=== PATIENT | male | born 1950 | race Caucasian/White ===

== ENCOUNTER 2022-11-22 10:59 | Observation (INO) | payer BC, OTHER ==
--- OUTSIDE RECORDS SUMMARY | 2022-11-22 11:01 | XMS REPORT | Clinical Summary ---
:1950 Author Organization [facility] MD [facility] Address [address] [place] [address] Care Team Providers Name Role Phone Jamarcus Staley MD Unavailable Unavailable Jamarcus Staley MD Unavailable Unavailable Tadeo Doshi MD Unavailable Anibal Toro MD Unavailable Miles Angel MD Unavailable Frances Pacheco Unavailable Amilcar Brady PhD Unavailable Unavailable Arlene Shaw PhD Unavailable [phone] Bruce Allen MD Unavailable Jhonny Wray MD Primary Care Provider Jesse Garduno MD Unavailable Allergies No known active allergies Medications Medication Sig Dispensed Refills Start Date End Date Status hydrochlorothiazide TK 1 T PO QD. 6 04/22/2016 Active (HYDRODIURIL) 12.5 mg tablet atorvastatin (LIPITOR) 80 Take 80 mg by 0 Active mg tablet mouth. aspirin (ASPIR-81) 81 mg Take by 0 Active EC tablet mouth. losartan (COZAAR) 100 mg 0 04/19/2016 Active tablet omeprazole (PriLOSEC) 40 Take 1 180 capsule 2 03/01/2018 Active MG capsuleIndications: capsule (40 Laryngopharyngeal reflux mg) by mouth 2 (two) times a day before meals. Additional Information Patient not taking. Reason: Not effective, Reported on 04/06/2020 magnesium oxide (MAOX) 400 mg tablet Take 400 mg by mouth daily. 0 Active montelukast (SINGULAIR) 10 mg tablet Take 10 mg by mouth daily. 0 Active ezetimibe (ZETIA) 10 mg tablet Take 10 mg by mouth daily. 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 Surgical History Surgery Date Site/Laterality Comments KNEE SURGERY DIRECT OPERATIVE LARYNGOSCOPY W/BIOPSY TRANSORAL LASER MICROSURGERY Elle epiglottic fold PARTIAL PHARYNGECTOMY FL OTOLARYNGOLOGIC EXAM UNDER 04/25/2018 Mouth/N/A Pr ocedure: OTOLARYNGOLOGIC GENERAL ANESTHESIA EXAM UNDER AN ESTHESIA; Surgeon: Jhonny hess MD; Location: MAIN O R; Service: HN - HEAD & NECK SURGERY FL LARYNGOSCOPY DIRECT 04/25/2018 Mouth/N/A Procedure : DIRECT OPERATIVE OPERATIVE W/BIOPSY LARYNGOSCOPY WITH BIOPSY; Surgeon: Jhonny hess MD; Location: MAIN O R; Service: HN - HEAD & NECK SURGERY FL LARYNGOSCOPY W/WO 05/23/2018 Mouth/Right Procedure: DIAGNOSTIC DIRECT TRACHEOSCOPY W/MICRO/TELESCOPE L ARYNGOSCOPY USING OPERATING MICROSCOPE; Need flexible CO2 laser; Surgeon: Jhonny Wray MD; Lo cation: MAIN OR; Service: HN - HEAD & NECK SURGERY Medical History Medical History Date Comments Hypertension Carotid artery stenosis Cancer Social History Tobacco Use Types Packs/Day Years Used Date Smoking Tobacco: Former Cigarettes 2 25 Smokeless Tobacco: Never Alcohol Use Standard Drinks/Week Comments Yes 5 (1 standard drink = 0.6 oz pure alcoho l) Sex Assigned at Date Recorded Not on file Obstetrics History Last Filed Vital Signs Not on file Plan of Treatment Health Maintenance Due Date Last Done Comments COVID-19 Vaccination (4 - Booster 09/14/2021 07/20/2021, , for Pfizer series) 10/28/2020 Results Not on fileafter 11/22/2021 Insurance Payer Benefit Plan / Subscriber ID Effective Phone Address T jeffrey [employer] Dates ACCESS TPA BRUNI [id number] 2017-Pres [phone] po box Ac cess [employer] ent [id number] [place] [address] MEDICARE MEDICARE PART [id number] 2013-Pre [phone] NOVITAS Medicare A AND B sent [id number] [facility] [place], [place] [address] Care Teams Obstetrics Scrub Nurse Relationship Specialty Start Date End Date Jamarcus Staley, PCP - External 12/09/13 MD Referring Jamarcus Staley, PCP - External Follow 12/09/13 Up Tadeo Dubon PCP - External Follow 12/17/13 MD Jay Aviles [address] [place] [address] Jhonny Wray MD PCP - General Head and Neck Surgery 04/18/[address] [place] [address] [id number] Anibal Toro MD Physician Radiology 12/08/[address] [place] [address] [id number] Miles Angel MD Physician Head and Neck Surgery 12/08/[address] [place] [address] [id number] Frances Pacheco PA Physician Remote Sensing Specialist Head and Neck Surgery 12/08/15 [address] [facility] [address] [place], [place] [phone] Amilcar Brady, PhD Physician Speech Pathology 12/08/15 Arlene Shaw Speech Language Speech Pathology 12/08/15 Wesley, PhD Pathologist [address] [place] [address] [phone] Bruce Allen MD Physician 12/08/[address] [place] [address] [phone] Jesse Garduno, Physician Cardiology 04/22/[address] [place] [address] [phone]
--- OUTSIDE RECORDS SUMMARY | 2022-11-22 11:02 | XMS REPORT | Continuity of Care Document ---
:1950 Author Organization [facility] t Address [address] [place] [address] Care Team Providers Name Role Phone BIA VAZ Primary Care Physician Unavailable Nurse, Adc Pob Immunization Attending Clinician Unavailable Gianni Simmons DO Attending Clinician GIANNI SIMMONS Attending Clinician Unavailable CALOS YOUNG Attending Clinician Unavailable ANT ANDRADE Attending Clinician Unavailable BIA VAZ Attending Clinician Unavailable Payers Payer Name Policy Type Policy Number Effective Date Expiration Date [facility] [id number] 2017 HEALTHCARE GENERIC 00:00:00 MEDICARE PART A AND [id number] 2013 B 00:00:00 Problems Condition Condition Condition Status Onset Resolution Last Treating Co mments Source Name Details Category Date Date Treatment Clinician Date Paralysis Paralysis Disease Active 2017-10 Uni vers of vocal of vocal 2-04 ity of cords and cords and 00:00: Andi s larynx, larynx, 00 unilateral unilateral [facility] Dysplasia Dysplasia Disease Active Overview: Univers of vocal of vocal 8- Formattin ity of cord cord 00:00: g of this [place] 00 note might be Gabriella hernandez n from the Cancer original. Center Added automatic ally from request for surgery [id number] Hypertensi Hypertensi Disease Recurre Univers on on nce 04-25 ity of 00:00: [place] 00 MD [facility] Carotid Carotid Disease Recurre Univer s artery artery nce 7-26 ity of stenosis stenosis 00:00: [place] 00 MD [facility] Leukoplaki Leukoplaki Disease Active Overview : Univers a of vocal a of vocal 7-18 Formattin ity of cord cord 00:00: g of this 00 note might be Andmoira hernandez n from the Cancer original. Center Added automatic ally from request for surgery [id number] Carcinoid Carcinoid Disease Active Uni vers tumor tumor 8-03 ity of 00:00: [place] 00 MD [facility] Allergies, Adverse Reactions, Alerts Allergy Allergy Status Severity Reaction(s) Onset Inactive Treating Comm ents Source Name Type Date Date Clinician NO KNOWN Drug Active Univers ALLERGIE Class ity of S [facility] Social History Social Habit Start Date Stop Date Quantity Comments Source History of tobacco Current smoker Un iversity of use [place] MD Leandro anaya [facility] Alcohol intake 2020-04-06 2020-04-06 Current drinker Unive rsity of 00:00:00 00:00:00 of alcohol [place] MD Leandro anaya (finding) [facility] Cigarettes smoked 2018-04-25 2018-04-25 Univers ity of current (pack per 00:00:00 00:00:00 [facility] Yulisa ) - Reported Cancer Ce nter Cigarette 2018-04-25 2018-04-25 University of pack-years 00:00:00 00:00:00 [place] MD Leandro anaya [facility] Tobacco use and 2017-07-27 2017-07-27 Never used Universit y of exposure 00:00:00 00:00:00 [facility] Sex Ass[birth year] At [birth year] Universit y of 00:00:00 00:00:00 [place] MD Leandro anaya [facility] Smoking Status Start Date Stop Date Source Ex-smoker 2018-04-25 00:00:00 2018-04-25 00:00:00 Universi ty of [facility] Current every day 2017-07-27 00:00:00 [facility] Medications Ordered Filled Start Stop Current Ordering Indication Dosage Frequency Signature Comments Components Source Medication Medication Date Date Medication? Clinician (SIG) Name Name atorvastati Yes 80mg Take 80 mg Univers n (LIPITOR) 04-06 by mouth. ity of 80 mg 15:32: [place] tablet 48 MD Gabriella diallo [facility] aspirin 2019-0 Yes Take by Univers (ASPIR-81) 7-07 mouth. ity of 81 mg EC 15:32: [place] tablet 48 MD Gabriella diallo [facility] magnesium 0 Yes 400mg Take 400 Uni vers oxide 7-07 mg by ity of (MAOX) 400 15:32: mouth [place] mg tablet 48 daily. MD Gabriella diallo [facility] montelukast Yes 10mg Take 10 mg Univers (SINGULAIR) 7-07 by mouth ity of 10 mg 15:32: daily. [place] tablet 48 MD Gabriella diallo [facility] ezetimibe Yes 10mg Take 10 mg Un nikki (ZETIA) 10 7-07 by mouth ity o f mg tablet 15:32: daily. [place] 48 MD Gabriella diallo [facility] omeprazole Yes Laryngophar 40mg Take 1 Univers (PriLOSEC) 6- yngeal capsule ity of 40 MG 00:00: reflux (40 mg) [place] capsule 00 mouth 2 (two) Gabriella times a n day before Cancer meals. Lamy aspirin 81 2016-10 Yes Take by Univ ers mg EC 0-27 mouth. ity of tablet 08:40: [place] 19 [facility] losartan 2016-10 Yes TK 1 T PO Univ ers 100 mg 0-16 QD ity of tablet 00:00: [place] 00 [facility] hydroCHLORO 2016-10 Yes TK 1 T PO U nivers thiazide 0-16 QD. ity of 12.5 mg 00:00: [place] tablet 00 [facility] atorvastati 2016-10 Yes Sandra s n 80 mg 0-16 ity of tablet 00:00: [place] 00 [facility] pantoprazol 2016-10 Yes TK 1 T PO U nivers e 40 mg EC 0-02 D ON EMPTY ity of tablet 00:00: STOMACH 30 [place] 00 MIN B LAURA [facility] montelukast Yes TK 1 T PO U nivers 10 mg 9-13 QAM ity of tablet 00:00: [place] 00 [facility] hydrochloro Yes TK 1 T PO U nivers thiazide 7-23 QD. ity of (HYDRODIURI 00:00: [place] L) 12.5 mg 00 MD galina Quiroz [facility] losartan Yes Univers (COZAAR) 7-20 ity of 100 mg 00:00: [place] tablet 00 MD [facility] Immunizations Ordered Filled Immunization Date Status Comments Sourc e Immunization Name Name SARS-COV-2 COVID-19 2021-07-20 Completed Unive rsity of PFIZER VACCINE 00:00:00 [facility] SARS-COV-2 COVID-19 2020-11-25 Completed Unive rsity of PFIZER VACCINE 00:00:00 [facility] SARS-COV-2 COVID-19 2020-10-28 Completed Unive rsity of PFIZER VACCINE 00:00:00 [facility] Vital Signs Vital Name Observation Time Observation Value Comments Source WEIGHT 2020-04-06 00:00:00 82.6 kg Procedures Procedure Date / Time Performed Performing Clinician Sour e SARS-COV-2 COVID-19 2021-07-20 13:07:06 Doctor Unassigned, No Un iversity of [place] VACCINE,0.3ML,IM Name Medical Branch (PFIZER) Plan of Care Planned Activity Planned Date Details Comments Source Future Scheduled 2022-07-29 COVID-19 Vaccination Uni versity of [place] Test 05:58:40 (4 - Booster for MD Son Cancer Pfizer series) [code Center = COVID-19 Vaccination (4 - Booster for Pfizer series)] Encounters Start End Encounter Admission Attending Care Care Encounter Source Date/Time Date/Time Type Type Clinicians Facility Department ID 2021-07-20 2021-07-20 Imm/Inj Nurse, Adc Pob Immunization [facility] [id number] Univers 08:05:54 08:15:54 Visit Gianni Simmons [id number] steffen [facility] [id number] Andi Linkessio [id number] De dical nal [address] [place] [address] 2021-07-20 2021-07-20 Outpatient R SID [facility] [id number] Univers 08:10:00 08:10:00 GIANNI bourne [facility] 2020-11-25 2020-11-25 Outpatient R HANNAH [facility] [id number] Univers 13:20:00 13:20:00 CALOS [id number] steffen [facility] 2020-11-25 2020-11-25 Outpatient R HANNAH, [facility] [id number] Univers 13:20:00 13:20:00 CALOS [facility] 2020-11-18 2020-11-18 Outpatient Lorena YOUNG [facility] [id number] Univers 13:20:00 13:20:00 CALOS [id number] [facility] 2020-10-28 2020-10-28 Outpatient Lorena YOUNG [facility] [id number] Univers 12:00:00 12:00:00 CALOS [id number] [facility] 2020-10-28 2020-10-28 [facility] [id number] Univers 12:00:00 12:00:00 CALOS [facility] 2020-10-05 2020-10-05 Outpatient MELLO ANDRADE, MDA MDA [id number] 00:00:00 00:00:00 ANT diallo 2020-10-05 2020-10-05 Outpatient MELLO ANDRADE, MDA MDA [id number] 00:00:00 00:00:00 ANT diallo 2020-10-05 2020-10-05 Outpatient EL GOEPFERT, MDA MDA [id number] 00:00:00 00:00:00 BIA diallo 2020-04-06 2020-04-06 Outpatient EL GOEPFERT, MDA MDA [id number] 08:30:56 10:37:54 BIA diallo 2020-04-06 2020-04-06 Outpatient EL GOEPFERT, MDA MDA [id number] 08:21:23 08:28:56 BIA diallo 2020-04-06 2020-04-06 Outpatient EL GOEPFERT, MDA MDA [id number] 07:07:20 07:07:20 BIA diallo Results This patient has no known results.
[2022-11-22 11:36] LABS: Absolute Lymphocytes (CBC) 1.6 K/uL (0.7-4.9); Hematocrit 45.8 % (39.6-49.0); Lymphocytes % 20.3 % (15.3-44.8); MCV 93.8 fL (80-100); MPV 7.8 fL (7.6-11.3); RBC Red Blood Cell Count 4.89 M/uL (4.33-5.43)
[2022-11-22] MEDS ORDERED: ONDANSETRON 4 MG/2 ML VIAL ONE (11:48)
[2022-11-22] MEDS ORDERED: MORPHINE 4 MG/ML SYR ONE (11:48)
[2022-11-22] MEDS ORDERED: ASPIRIN 81 MG CHEWABLE TABLET ONE (11:48)
[2022-11-22] MEDS ORDERED: NA CHLORIDE 0.9% 1,000 ML ONE (11:49)
[2022-11-22] MEDS ORDERED: FAMOTIDINE 20 MG/2 ML VIAL IV ONE (11:49)
[2022-11-22 11:54] LABS: Potassium 3.5 mmol/L (3.5-5.1); Troponin High Sensitivity 6.9 pg/mL (<58.9)
--- NOTE | 2022-11-22 12:30 | EDPHYS ---
Physician Documentation [facility] Name: Jm Bearden Age: 72 yrs Sex: Male : 1950 Arrival Date: 11/22/2022 Time: 11:03 Bed 4 Private MD: Tadeo Doshi T ED Physician Fredis Cline HPI: 11/22 12:22 This 72 yrs old Male presents to ER via Ambulatory with complaints of Chest paula Pressure. 12:22 The patient or guardian reports chest pain that is located primarily in the anterior paula chest wall, bilaterally. Onset: last night. The pain does not radiate. Associated signs and symptoms: Pertinent positives: dizziness, lightheadedness, shortness of breath. The chest pain is described as a heaviness, a pressure. Modifying factors: The symptoms are alleviated by nothing. the symptoms are aggravated by nothing. Severity of pain: At its worst the pain was mild in the emergency department the pain is unchanged. The patient has not experienced similar symptoms in the past. Historical: - Allergies: 11:09 No Known Allergies; [facility] - PMHx: 11:09 COPD; throat cancer; Hypertensive disorder; [facility] - PSHx: 11:09 throat ca removal x2; [facility] 11:16 prostate sx; [facility] - Immunization history:: Adult Immunizations up to date. - Social history:: Smoking status: Patient reports the use of cigarette tobacco products, smokes one pack cigarettes per day. - Family history:: not pertinent. ROS: 12:22 Constitutional: Negative for fever, chills, and weight loss, Eyes: Negative for injury, paula pain, redness, and discharge, ENT: Negative for injury, pain, and discharge, Neck: Negative for injury, pain, and swelling, Respiratory: Negative for shortness of breath, cough, wheezing, and pleuritic chest pain, Abdomen/GI: Negative for abdominal pain, nausea, vomiting, diarrhea, and constipation, Back: Negative for injury and pain, : Negative for injury, bleeding, discharge, and swelling, MS/Extremity: Negative for injury and deformity, Skin: Negative for injury, rash, and discoloration, Neuro: Negative for headache, weakness, numbness, tingling, and seizure, Psych: Negative for depression, anxiety, suicide ideation, homicidal ideation, and hallucinations, Allergy/Immunology: Negative for hives, rash, and allergies, Endocrine: Negative for neck swelling, polydipsia, polyuria, polyphagia, and marked weight changes, Hematologic/Lymphatic: Negative for swollen nodes, abnormal bleeding, and unusual bruising. 12:22 Cardiovascular: Positive for chest pain. Exam: 12:22 Constitutional: This is a well developed, well nourished patient who is awake, alert, paula and in no acute distress. Head/Face: Normocephalic, atraumatic. Eyes: Pupils equal round and reactive to light, extra-ocular motions intact. Lids and lashes normal. Conjunctiva and sclera are non-icteric and not injected. Cornea within normal limits. Periorbital areas with no swelling, redness, or edema. ENT: Nares patent. No nasal discharge, no septal abnormalities noted. Tympanic membranes are normal and external auditory canals are clear. Oropharynx with no redness, swelling, or masses, exudates, or evidence of obstruction, uvula midline. Mucous membranes moist. Neck: Trachea midline, no thyromegaly or masses palpated, and no cervical lymphadenopathy. Supple, full range of motion without nuchal rigidity, or vertebral point tenderness. No Meningismus. Chest/axilla: Normal chest wall appearance and motion. Nontender with no deformity. No lesions are appreciated. Cardiovascular: Regular rate and rhythm with a normal S1 and S2. No gallops, murmurs, or rubs. Normal PMI, no JVD. No pulse deficits. Respiratory: Lungs have equal breath sounds bilaterally, clear to auscultation and percussion. No rales, rhonchi or wheezes noted. No increased work of breathing, no retractions or nasal flaring. Abdomen/GI: Soft, non-tender, with normal bowel sounds. No distension or tympany. No guarding or rebound. No evidence of tenderness throughout. Back: No spinal tenderness. No costovertebral tenderness. Full range of motion. Male : Normal genitalia with no discharge or lesions. Skin: Warm, dry with normal turgor. Normal color with no rashes, no lesions, and no evidence of cellulitis. MS/ Extremity: Pulses equal, no cyanosis. Neurovascular intact. Full, normal range of motion. Neuro: Awake and alert, GCS 15, oriented to person, place, time, and situation. Cranial nerves II-XII grossly intact. Motor strength 5/5 in all extremities. Sensory grossly intact. Cerebellar exam normal. Normal gait. Psych: Awake, alert, with orientation to person, place and time. Behavior, mood, and affect are within normal limits. 12:22 ECG was reviewed by the Attending Physician. Vital Signs: 11:07 BP 152 / 87; Pulse 81; Resp 16; Temp 98.6; Pulse Ox 97% ; Weight 82.55 kg; Height 5 ft. 5 11 in. (180.34 cm); Pain 5/10; 12:22 BP 142 / 78; Pulse 73; Resp 19 S; Pulse Ox 97% on R/A; kc6 13:09 BP 154 / 80; Pulse 79; Resp 24 S; Pulse Ox 96% on R/A; kc6 13:52 BP 140 / 67; Pulse 74; Resp 16; Pulse Ox 97% ; jl7 14:00 BP 144 / 77; Pulse 72; Resp 18 S; Pulse Ox 98% on R/A; kc6 14:30 BP 144 / 83; Pulse 72; Resp 12 S; Pulse Ox 98% on R/A; kc6 11:07 Body Mass Index 25.38 (82.55 kg, 180.34 cm) [facility] MDM: 11:16 Patient medically screened. paula 12:26 Differential diagnosis: abnormal EKG, acute myocardial infarction, acute pericarditis, paula anxiety, coronary artery disease congestive heart failure Cholelithiasis costochondritis, hiatal hernia, myocarditis, pancreatitis, peptic ulcer disease, pleurisy, pulmonary embolus, stable angina, thoracic aortic disection, unstable angina. HEART Score: History: Slightly Suspicious (0), ECG: Non specific repolarization disturbance / LBTB / PM (1), Age: > or = 65 years (2), Risk Factors: > or = 3 Risk factors for atherosclerotic disease (2), [Hypercholesterolemia] [Hypertension] [+ Family HX] Troponin: < or = 1 x Normal Limit (0). The patient was given aspirin in the Emergency Department. JUAN DANIEL Risk Score: 1 - patient's age is greater or equal to 65 years, 1 - Three or more CAD risk factors, TOTAL SCORE = 2. Data reviewed: vital signs, nurses notes, lab test result(s), EKG, radiologic studies, CT scan, plain films. Consideration of Admission/Observation Patient was admitted/placed on observation. Escalation of care including admission/observation considered. Management of patient was discussed with the following: Long Distance Operator: DR CRAIG. Care significantly affected by the following chronic conditions: Hypertension, Chronic Obstructive Pulmonary Disease, Cancer. 11/22 11:11 Order name: Basic Metabolic Panel [facility] 11/22 11:11 Order name: CBC with Diff [facility] 11/22 11:11 Order name: Troponin HS [facility] 11/22 11:17 Order name: Lipase [facility] 11/22 11:17 Order name: SARS RAPID [facility] 11/22 11:41 Order name: Ptt, Activated [facility] 11/22 11:44 Order name: CBC with Automated Diff; Complete Time: 12:31 [facility] 11/22 11:54 Order name: Basic Metabolic Panel; Complete Time: 12:31 [facility] 11/22 11:54 Order name: Troponin High Sensitivity; Complete Time: 12:31 [facility] 11/22 11:54 Order name: Lipase; Complete Time: 12:31 [facility] 11/22 12:36 Order name: SARS-COV-2 Antigen Rapid; Complete Time: 12:45 [facility] 11/22 13:47 Order name: Phosphorus [facility] 11/22 13:47 Order name: T4 Free [facility] 11/22 13:47 Order name: Magnesium [facility] 11/22 11:11 Order name: XRAY Chest (1 view) [facility] 11/22 11:11 Order name: EKG; Complete Time: 11:11 [facility] 11/22 11:17 Order name: US Extremity Venous W Compression Dwayne [facility] 11/22 11:17 Order name: CT Chest For PE Angio [facility] 11/22 13:15 Order name: CT [facility] 11/22 13:15 Order name: US [facility] 11/22 13:16 Order name: RAD [facility] 11/22 13:47 Order name: Thyroid Stimulating Hormone [facility] 11/22 11:11 Order name: Cardiac monitoring; Complete Time: : [facility] 11/22 11:11 Order name: EKG - Nurse/Tech; Complete Time: 11:11 [facility] 11/22 11:11 Order name: IV Saline Lock; Complete Time: 11:16 [facility] 11/22 11:11 Order name: Labs collected and sent; Complete Time: 11:16 [facility] 11/22 11:11 Order name: O2 Per Protocol; Complete Time: : [facility] 02/22 11:11 Order name: O2 Sat Monitoring; Complete Time: : 5 EC:22 Rate is 80 beats/min. Rhythm is regular. QRS Merrill is Normal. CO interval is normal. QRS paula interval is normal. QT interval is normal. No Q waves. T waves are Normal. No ST changes noted. Clinical impression: No evidence of ischemia. Interpreted by me. Reviewed by me. Administered Medications: 11:18 CANCELLED (Duplicate Order): Aspirin Chewable Tablet 162 mg PO once paula 11:57 Drug: NS 0.9% 1000 ml Route: IV; Rate: 125 ml/hr; Site: right antecubital; kc6 15:07 Follow up: Response: No adverse reaction; IV Status: Completed infusion kc6 11:57 Not Given (Patient Refused): Pepcid (famotidine) 20 mg IVP once; dilute with 10 mL 0.9% kc6 NaCl; give over 2 minutes 11:57 Not Given (Patient Refused): morphine 4 mg IVP once over 4 mins kc6 11:57 Not Given (Patient Refused): Zofran (Ondansetron) 4 mg IVP once; over 2 minutes kc6 11:57 Drug: Aspirin Chewable Tablet 324 mg Route: PO; kc6 15:07 Follow up: Response: No adverse reaction kc6 12:46 Not Given (Physician Discretion): Heparin (DVT/PE- Bolus per protocol) - HEParin 80 kc6 units/kg IVP once; Max 8,000 units 12:46 Not Given (Physician Discretion): Heparin (DVT/PE Drip) 18 units/kg/hr - (HEParin 78593 kc6 units, D5W 500 ml) IV at per protocol Per protocol; Max initial rate 1800 units/hr Disposition Summary: 11/22/22 12:29 Hospitalization Ordered Hospitalization Status: Observation paula Provider: Junior Beard cha Location: Telemetry/MedSurg (observation) paula Condition: Stable paula Problem: new paula Symptoms: have improved paula Bed/Room Type: Standard paula Room Assignment: paula Diagnosis - Chest pain, unspecified paula - Essential (primary) hypertension paula Forms: - Medication Reconciliation Form paula - SBAR form paula Signatures: Dispatcher [employer] Fredis Glynn MD MD cha Smirch, Shelby, RN RN Julee Meza RN RN 5 Luz Marina Valdez RN RN kc6 Corrections: (The following items were deleted from the chart) 11:18 11:17 Aspirin Chewable Tablet 162 mg PO once ordered. [facility] 12:49 12:27 Labs - recollect needed ordered. kc6
--- NOTE | 2022-11-22 12:30 | ER ---
Nurse's Notes [facility] Name: Jm Bearden Age: 72 yrs Sex: Male : 1950 Arrival Date: 11/22/2022 Time: 11:03 Bed 4 Private MD: Tadeo Doshi T Diagnosis: Chest pain, unspecified;Essential (primary) hypertension Presentation: 11/22 11:07 Chief complaint: Patient states: last night I woke up just feeling sick and my leg jh5 started spasms and I was having chest pressure and SOB so i took an aspirin and then i was sent here this morning. Coronavirus screen: Vaccine status: Patient reports receiving the 2nd dose of the covid vaccine. Client denies travel out of the [place] in the last 14 days. Ebola Screen: Patient negative for fever greater than or equal to 101.5 degrees Fahrenheit, and additional compatible Ebola Virus Disease symptoms Patient denies exposure to infectious person. Patient denies travel to an Ebola-affected area in the 21 days before illness onset. Initial Sepsis Screen: Does the patient meet any 2 criteria? No. Patient's initial sepsis screen is negative. Does the patient have a suspected source of infection? No. Patient's initial sepsis screen is negative. Risk Assessment: Do you want to hurt yourself or someone else? Patient reports no desire to harm self or others. 11:07 Method Of Arrival: Ambulatory [facility] 11:07 Acuity: ROJAS 3 jh5 Triage Assessment: 11:09 General: Appears in no apparent distress. uncomfortable, slender, Behavior is calm, jh5 cooperative, appropriate for age. Pain: Complains of pain in chest. Cardiovascular: Reports chest pain, fatigue, shortness of breath. Historical: - Allergies: 11:09 No Known Allergies; jh5 - PMHx: 11:09 COPD; throat cancer; Hypertensive disorder; [facility] - PSHx: 11:09 throat ca removal x2; [facility] 11:16 prostate sx; [facility] - Immunization history:: Adult Immunizations up to date. - Social history:: Smoking status: Patient reports the use of cigarette tobacco products, smokes one pack cigarettes per day. - Family history:: not pertinent. Screenin:05 [facility] ED Fall Risk Assessment (Adult) History of falling in the last 3 months, kc6 including since admission No falls in past 3 months (0 pts) Confusion or Disorientation No (0 pts) Intoxicated or Sedated No (0 pts) Impaired Gait No (0 pts) Mobility Assist Device Used No (0 pt) Altered Elimination No (0 pt) Score/Fall Risk Level 0 - 2 = Low Risk Oriented to surroundings, Maintained a safe environment, Educated pt \T\ family on fall prevention, incl call for assistance when getting out of bed, Assessed \T\ reinforced patient's understanding of fall precautions, Hourly rounding (assess needs \T\ fall precautionary measures) done. Abuse screen: Denies threats or abuse. Denies injuries from another. Nutritional screening: No deficits noted. Tuberculosis screening: No symptoms or risk factors identified. Assessment: 12:05 General: Appears in no apparent distress. comfortable, Behavior is calm, cooperative, kc6 appropriate for age. Pain: Denies pain. Pain does not radiate. Pain began suddenly. Neuro: Ortega Agitation-Sedation Scale (RASS): 0 - Alert and Calm Level of Consciousness is awake, alert, obeys commands, Oriented to person, place, time, situation, Appropriate for age. Cardiovascular: Capillary refill < 3 seconds. Respiratory: Airway is patent Trachea midline Respiratory effort is even, unlabored, Respiratory pattern is regular, symmetrical. GI: No signs and/or symptoms were reported involving the gastrointestinal system. : No signs and/or symptoms were reported regarding the genitourinary system. EENT: No signs and/or symptoms were reported regarding the EENT system. Derm: No signs and/or symptoms reported regarding the dermatologic system. Skin is intact, Skin is pink, warm \T\ dry. Musculoskeletal: No signs and/or symptoms reported regarding the musculoskeletal system. Circulation, motion, and sensation intact. Capillary refill < 3 seconds, Range of motion: intact in all extremities. 12:46 Reassessment: ALICIA Mixon spoke with Dr. Cline. per LAICIA Mixon hold heparin drip unless kc6 troponin trends up. 13:05 Reassessment: Patient appears in no apparent distress at this time. No changes from kc6 previously documented assessment. Patient and/or family updated on plan of care and expected duration. Pain level reassessed. Patient is alert, oriented x 3, equal unlabored respirations, skin warm/dry/pink. Patient denies pain at this time. 14:05 Reassessment: Patient appears in no apparent distress at this time. No changes from 6 previously documented assessment. Patient and/or family updated on plan of care and expected duration. Pain level reassessed. Patient is alert, oriented x 3, equal unlabored respirations, skin warm/dry/pink. Patient denies pain at this time. 15:05 Reassessment: Patient appears in no apparent distress at this time. No changes from 6 previously documented assessment. Patient and/or family updated on plan of care and expected duration. Pain level reassessed. Patient is alert, oriented x 3, equal unlabored respirations, skin warm/dry/pink. Patient denies pain at this time. Vital Signs: 11:07 BP 152 / 87; Pulse 81; Resp 16; Temp 98.6; Pulse Ox 97% ; Weight 82.55 kg; Height 5 ft. jh5 11 in. (180.34 cm); Pain 5/10; 12:22 BP 142 / 78; Pulse 73; Resp 19 S; Pulse Ox 97% on R/A; kc6 13:09 BP 154 / 80; Pulse 79; Resp 24 S; Pulse Ox 96% on R/A; kc6 13:52 BP 140 / 67; Pulse 74; Resp 16; Pulse Ox 97% ; jl7 14:00 BP 144 / 77; Pulse 72; Resp 18 S; Pulse Ox 98% on R/A; kc6 14:30 BP 144 / 83; Pulse 72; Resp 12 S; Pulse Ox 98% on R/A; kc6 11:07 Body Mass Index 25.38 (82.55 kg, 180.34 cm) [facility] ED Course: 11:03 Patient arrived in ED. am2 11:03 Tadeo Doshi MD is Private Physician. am2 11:05 Spenser Sanchez PA is PHCP. [facility] 11:05 Fredis Cline MD is Attending Physician. [facility] 11:08 Triage completed. 5 11:09 Arm band placed on right wrist. [facility] 11:16 Basic Metabolic Panel Sent. [facility] 11:16 CBC with Diff Sent. [facility] 11:[address] [facility] 11:16 Inserted saline lock: 20 gauge in right antecubital area, using aseptic technique. [facility] 11:37 Luz Marina Valdez RN is Primary Nurse. kc6 11:57 Ptt, Activated Sent. kc6 11:57 SARS RAPID Sent. kc6 12:06 Patient has correct armband on for positive identification. Placed in gown. Bed in low kc6 position. Call light in reach. Side rails up X2. Client placed on continuous cardiac and pulse oximetry monitoring. NIBP monitoring applied. compression molding machine tender on. 12:06 Patient maintains SpO2 saturation greater than 95% on room air. kc6 12:29 Junior Beard is Hospitalizing Provider. [facility] 15:06 No provider procedures requiring assistance completed. IV discontinued, intact, kc6 bleeding controlled, No redness/swelling at site. Pressure dressing applied. Administered Medications: 11:18 CANCELLED (Duplicate Order): Aspirin Chewable Tablet 162 mg PO once [facility] 11:57 Drug: NS 0.9% 1000 ml Route: IV; Rate: 125 ml/hr; Site: right antecubital; kc6 15:07 Follow up: Response: No adverse reaction; IV Status: Completed infusion kc6 11:57 Not Given (Patient Refused): Pepcid (famotidine) 20 mg IVP once; dilute with 10 mL 0.9% kc6 NaCl; give over 2 minutes 11:57 Not Given (Patient Refused): morphine 4 mg IVP once over 4 mins kc6 11:57 Not Given (Patient Refused): Zofran (Ondansetron) 4 mg IVP once; over 2 minutes kc6 11:57 Drug: Aspirin Chewable Tablet 324 mg Route: PO; kc6 15:07 Follow up: Response: No adverse reaction kc6 12:46 Not Given (Physician Discretion): Heparin (DVT/PE- Bolus per protocol) - HEParin 80 kc6 units/kg IVP once; Max 8,000 units 12:46 Not Given (Physician Discretion): Heparin (DVT/PE Drip) 18 units/kg/hr - (HEParin 71023 kc6 units, D5W 500 ml) IV at per protocol Per protocol; Max initial rate 1800 units/hr Outcome: 12:29 Decision to Hospitalize by Provider. paula 15:06 AMA AMA form signed kc6 15:06 Condition: stable 15:06 Instructed on the need for admit. 15:09 Patient left the ED. [facility] Signatures: Fredis Cline MD MD cha Mickail, Joel, PA PA jmm Leal, Jahala, RN RN jl7 Nannette Morgan am2 Julee eMza, RN RN jh5 Luz Marina Valdez, RN RN kc6
[2022-11-22 12:36] LABS: SARS-CoV-2 Antigen Rapid Res Negative (Negative)
[2022-11-22] MEDS ORDERED: TRAMADOL HCL 50 MG TAB PO PRN (13:07)
[2022-11-22] MEDS ORDERED: ACETAMINOPHEN 325 MG TABLET PO PRN (13:07)
[2022-11-22] MEDS ORDERED: ONDANSETRON 4 MG/2 ML VIAL IV PRN (13:12)
[2022-11-22] MEDS ORDERED: HYDRALAZINE HCL 20 MG/ML VIAL IV PRN (13:13)
--- NOTE | 2022-11-22 13:14 | RAD REPORT ---
EXAM DESCRIPTION: CT - Chest For Pe Angio - 11/22/2022 12:44 pm CLINICAL HISTORY: Chest pain. Shortness of breath COMPARISON: Chest radiograph of the same day. TECHNIQUE: Dynamically enhanced axial 3 mm thick images of the chest were obtained during administra tion of 95 mL Isovue 370 IV contrast. Coronal and oblique reconstruction images were generated and re viewed. Exam utilizes a protocol for optimal evaluation of pulmonary arterial tree. All CT scans are performed using dose optimization technique as appropriate and may include automated exposure control or mA/KV adjustment according to patient size. FINDINGS: Pulmonary arteries are normal. No emboli or other suspicious finding. No acute or signific ant aorta findings. No mass or infiltrate in the lung parenchyma. Mild paraseptal emphysematous changes near the apices w ith mild biapical scarring. No pleural thickening or pleural effusion. No pneumothorax. Moderate athe rosclerotic calcifications along the thoracic aorta. No abnormal mediastinal or hilar masses or lymphadenopathy seen. No chest wall mass or abnormal axill iary lymphadenopathy. IMPRESSION: No evidence acute pulmonary emboli. No other acute pulmonary process. Mild paraseptal emphysematous changes.
--- NOTE | 2022-11-22 13:15 | RAD REPORT ---
EXAM DESCRIPTION: US - Extrem Venous W Compress Dwayne - 11/22/2022 12:41 pm CLINICAL HISTORY: Pain COMPARISON: None. TECHNIQUE: Real-time sonographic evaluation of the bilateral lower extremity deep venous systems was performed. FINDINGS: Normal compressibility, flow augmentation, phasic flow and spontaneous flow is identified in both the left and right lower extremity deep venous systems. No intraluminal filling defects seen. IMPRESSION: No evidence of DVT in either lower extremity.
--- NOTE | 2022-11-22 13:15 | RAD REPORT ---
EXAM DESCRIPTION: Jamirt Single View11/22/2022 12:57 pm CLINICAL HISTORY: CHEST PAIN COMPARISON: Chest Pa And Lat (2 Views) dated 04/07/2021; Chest Pa And Lat (2 Views) dated 12/06/2017; CH EST PA AND LAT 2 VIEW dated 04/06/2015 TECHNIQUE: Portable AP view of the chest. FINDINGS: The lungs are clear. No pneumothorax or effusion. The cardiomediastinal contours are unrem arkable. IMPRESSION: No acute cardiopulmonary process.
--- NOTE | 2022-11-22 13:18 | P.HP ---
Certification for Inpatient Patient admitted to: Observation With expected LOS: <2 Midnights Patient will require the following post-hospital care: None Practitioner: I am a practitioner with admitting privileges, knowledge of patient current condition, hospital course, and medical plan of care. Services: Services provided to patient in accordance with Admission requirements found in Title 42 Section 412.3 of the Code of Federal Regulations Patient History Date of Service: 11/22/22 Reason for admission: Chest pain History of Present Illness: Patient is a 72-year-old male with a past medical history significant for COPD, throat cancer, hypertension, prostate cancer who presents with complaint of chest pain located in the substernal chest area onset last night. Patient rated pain as 5/10 in severity and described pain as pressure in quality. Patient reported associated signs and symptoms of dizziness. Patient denies any other signs and symptoms. Symptoms are aggravated or relieved by nothing. Patient followed up with his iron caster today and was instructed to come to the ER. Patient decided to present to the ER as directed. - Past Medical/Surgical History -: HTN -: COPD -: Nicotine dependence Past Surgical History: Reviewed- Non-Contributory - Family History Family History: Reviewed- Non-Contributory - Social History Smoking Status: Current every day smoker Counseled patient to stop smoking for: less than 10 minutes Smoking therapy provided: Yes Patient receptive to therapy: Yes Alcohol use: Yes CD- Drugs: No Caffeine use: Yes Place of Residence: Home Review of Systems General: Unremarkable Eyes: Unremarkable ENT: Unremarkable Respiratory: Unremarkable Cardiovascular: Chest Pain Gastrointestinal: Unremarkable Genitourinary: Unremarkable Musculoskeletal: Unremarkable Integumentary: Unremarkable Neurological: Other (Dizziness.) Lymphatics: Unremarkable Physical Examination - Physical Exam General: Alert, In no apparent distress, Oriented x3, Cooperative HEENT: Atraumatic, PERRLA, Mucous membr. moist/pink, EOMI, Sclerae nonicteric Neck: Supple, 2+ carotid pulse no bruit, No LAD, Without JVD or thyroid abnormality Respiratory: Clear to auscultation bilaterally, Normal air movement Cardiovascular: No edema, Regular rate/rhythm, Normal S1 S2 Capillary refill: <2 Seconds Gastrointestinal: Normal bowel sounds, Soft and benign, No tenderness Musculoskeletal: No clubbing, No swelling, No tenderness Integumentary: No rashes, No significant lesion Neurological: Normal gait, Normal speech, Normal strength at 5/5 x4 extr, Normal tone, Normal affect Lymphatics: No axilla or inguinal lymphadenopathy - Studies Laboratory Data (last 24 hrs) 11/22/22 11:17: Lipase Cancelled 11/22/22 11:17: WBC 8.10, Hgb 15.7, Hct 45.8, Plt Count 275 11/22/22 11:17: Sodium 133 L, Potassium 3.5, BUN 15, Creatinine 0.99, Glucose 102, Lipase 152 Assessment and Plan - Plan --Chest pain. To rule out ACS. Will trend serial troponins--negative so far. Cardiology consulted. Echocardiogram pending to assess cardiac structures and functions. Telemetry to monitor for any significant arrhythmia. Will await further recommendation from iron caster. --COPD. Stable. Continue home medication. --History of throat cancer\prostrate cancer. Status unknown. Continue supportive care. --Hypertension. Poorly controlled. Continue home medications and hydralazine as needed. --CKD 2. Stable. We will continue to monitor renal functions. --DVT prophylaxis with Lovenox subQ. Discharge Plan: Home Plan to discharge in: 48 Hours - Advance Directives Does patient have a Living Will: No Does patient have a Durable POA for Healthcare: No - Code Status/Comfort Care Code Status Assessed: Yes Physician Review: Patient Assessed, Agree with Above Assessment and Plan Critical Care: No
[2022-11-22 13:46] LABS: Magnesium 1.8 mg/dL (1.6-2.4); Phosphorus 2.7 mg/dL (2.5-4.9); Thyroid Stimulating Hormone 1.15 uIU/mL (0.358-3.740)
[2022-11-22] MEDS ORDERED: ENOXAPARIN 40 MG/0.4 ML SQ SCH (14:00)
[2022-11-22 15:42] VITALS: TEMP 98.6
[2022-11-22 16:03] VITALS: O2SAT 98
[2022-11-22 16:04] VITALS: BP 144/83
[2022-11-23] MEDS ORDERED: ASPIRIN 81 MG CHEWABLE TABLET PO SCH (09:00)
--- NOTE | 2022-11-24 13:24 | EKG ---
Test Date: 2022-11-22 Test Time: 11:11:44 Nail Expert: LAURA MEASUREMENT RESULTS: Intervals: Rate: 80 PA: 182 QRSD: 134 QT: 402 QTc: 463 [place]: P: 80 PA: 182 QRS: 86 T: 62 INTERPRETIVE STATEMENTS: Normal sinus rhythm Right bundle branch block Abnormal ECG Compared to ECG 12/20/2004 08:06:00 Myocardial infarct finding no longer present Electronically Signed On 11-24-22 13:19:20 [employer] REVENUE OFFICER by Aayush Banks
== END 2022-11-22 15:05 | disposition left against medical advice (07) ==
LOC: ER 10:59 → ERHOLD 13:06
PROVIDERS: ADMIT Internal Medicine; ATTEND Internal Medicine
DX: R07.9 Chest pain, unspecified (principal); J44.9 Chronic obstructive pulmonary disease, unspecified; I12.9 Hypertensive chronic kidney disease with stage 1 through stage 4 chronic kidney disease, or unspecified chronic kidney disease; N18.2 Chronic kidney disease, stage 2 (mild); Z85.46 Personal history of malignant neoplasm of prostate; Z85.21 Personal history of malignant neoplasm of larynx; Z20.822 Contact with and (suspected) exposure to COVID-19
CPT/HCPCS: 85025; 80048; 36415; 83735; 84100; 84443; 84484; 84439; 83690; 71275; 71045; 93970; 87811; Q9967; J7030; 93005; 96360; 96361; 99285; G0378; J2405